=== PATIENT | female | born 1960 | race Caucasian/White ===

== ENCOUNTER 2021-02-05 08:42 | Day surgery (SDC) | payer BC ==
[~2021-02-05 08:42] MED LIST: Metoclopramide 10 MG/2 ML SDV IV PRN
[2021-02-05] MEDS: Sodium Chloride 0.9% 1,000 ML IV SCH (09:06)
[2021-02-05] MEDS ORDERED: Propofol 200 MG/20 ML SDV ONE (09:44)
--- NOTE | 2021-02-05 11:49 | OR ---
DATE OF OPERATION: 02/05/2021 SURGEON: Sabino Almendarez MD PREOPERATIVE DIAGNOSIS: History of diarrhea. POSTOPERATIVE DIAGNOSIS: History of diarrhea. PROCEDURE PERFORMED: Colonoscopy. ANESTHESIA: MAC. ESTIMATED BLOOD LOSS: Minimal. COMPLICATIONS: None. INDICATION FOR PROCEDURE: The patient is a 60-year-old female who last had a colonoscopy about 11 years ago, may have had a few polyps at that time. Otherwise, denies any change in bowel habits until the last 8 months ago. She did have some chronic diarrhea and was recommended to have colonoscopy, that has since resolved. She otherwise denies any recent change in bowel habits. No blood in the stool. She is here today for screening colonoscopy now. DESCRIPTION OF PROCEDURE: Informed consent was obtained from the patient. The patient was taken to the operating room, placed on table in left lateral decubitus position. Monitored anesthesia care was administered. Digital rectal exam performed and was normal. Colonoscope was then advanced through the anus, directed towards the cecum. Cecum was reached and identified by appendiceal orifice and ileocecal valve. Colonoscope was slowly withdrawn. She did have a small sessile polyp in the ascending colon, this was removed using hot forceps. She did have few small diverticula in the sigmoid colon as well. Otherwise, the colon was unremarkable. Colonoscope then withdrawn. Rectum was also otherwise unremarkable. FINDINGS: Ascending colon polyp and sigmoid diverticulosis. RECOMMENDATIONS: We would recommend repeat surveillance colonoscopy in 5 years. We will follow up on biopsy results, also recommend high-fiber diet due to her diverticula and avoiding straining. SAMANTHA/NAWAF /[id number] JIM
== END 2021-02-05 11:08 | disposition home or self-care (01) ==
LOC: LB.SDS 08:42
PROVIDERS: ATTEND Surgery
DX: D12.2 Benign neoplasm of ascending colon (principal); K57.30 Diverticulosis of large intestine without perforation or abscess without bleeding; I10 Essential (primary) hypertension; F17.210 Nicotine dependence, cigarettes, uncomplicated; Z88.2 Allergy status to sulfonamides; Z86.010 Personal history of colon polyps; Z98.890 Other specified postprocedural states
CPT/HCPCS: J2704; J7030

== ENCOUNTER 2024-02-10 18:05 | Emergency (ER) | payer BC ==
[2024-02-10] MEDS: Diphtheria,Pertussis(Acell),Tetanus Vaccine 0.5 ML Syringe IM ONE (18:35)
[2024-02-10] MEDS: Bacitracin Oint 1 GM U/D Packet TOP ONE (18:38)
[2024-02-10] MEDS ORDERED: Amoxicillin 500 MG Cap ONE (19:20)
== END 2024-02-10 19:24 | disposition home or self-care (01) ==
LOC: LB.ED 18:05
DX: S81.851A Open bite, right lower leg, initial encounter (principal); Z23 Encounter for immunization; F17.210 Nicotine dependence, cigarettes, uncomplicated; Z88.2 Allergy status to sulfonamides; Z79.899 Other long term (current) drug therapy; W54.0XXA Bitten by dog, initial encounter
CPT/HCPCS: 90471; 90715; 99283-25; A9270-GY